=== PATIENT | male | born 1955 | race Caucasian/White ===

== ENCOUNTER 2019-03-16 17:30 | Emergency (ER) | payer OTHER ==
[~2019-03-16 17:30] MED LIST: AMITRIPTYLINE150 M1 PO; DEPAKOTE ER500 MG PO; GLUCOPHAGE500 M1 PO; HYDR25T PO; INVEGA9 MG PO; PRILOSEC40 M1 PO; TAMSULOSIN HCL0.4 MG PO; TRAMADOL HCL50 MG PO; ZESTRIL10 MG PO
== END 2019-03-16 18:30 | disposition expired ==
LOC: ED 17:35
DX: I46.9 Cardiac arrest, cause unspecified (principal); E11.9 Type 2 diabetes mellitus without complications; K21.9 Gastro-esophageal reflux disease without esophagitis; I10 Essential (primary) hypertension; F17.210 Nicotine dependence, cigarettes, uncomplicated; Z88.5 Allergy status to narcotic agent; Z79.899 Other long term (current) drug therapy; Z91.040 Latex allergy status